=== PATIENT | female | born 1940 | race Caucasian/White ===

== ENCOUNTER 2022-03-04 14:32 | Emergency (ER) | payer MEDICARE, OTHER ==
[~2022-03-04] VITALS: Ht 154.9 cm; Wt 53.6 kg
[~2022-03-04 14:32] MED LIST: ASPI-1265 PO; ATOR40TA PO; CA C1TAB69 PO; CALC-336 PO; CLOP75TA34 PO; COPP2TAB PO; DIPHENOXYLATE HCL PO; LISI-222 PO; METH1500 PO; NITR0.4T51 SL; OMEG1CAP54 PO; RANI150C11 PO; SOTA80TA73 PO; VITC500T PO; [UNRECOGNIZED DRUG - CODE] PO; [UNRECOGNIZED DRUG - OTHER] PO
[2022-03-04 14:36] VITALS: BP 151/79
[2022-03-04] MEDS ORDERED: APIX5TAB3 PO ×2 (16:47)
[2022-03-04] MEDS ORDERED: apixaban 5mg tablet PO ONE (16:47)
== END 2022-03-04 17:12 | disposition home or self-care (01) ==
LOC: ER 14:32
DX: I82.401 Acute embolism and thrombosis of unspecified deep veins of right lower extremity (principal); I48.91 Unspecified atrial fibrillation; I25.10 Atherosclerotic heart disease of native coronary artery without angina pectoris; G89.29 Other chronic pain; Z98.890 Other specified postprocedural states; Z88.1 Allergy status to other antibiotic agents; Z88.8 Allergy status to other drugs, medicaments and biological substances; Z88.6 Allergy status to analgesic agent; Z79.82 Long term (current) use of aspirin; Z79.899 Other long term (current) drug therapy
CPT/HCPCS: 73630; 93971; 99284

== ENCOUNTER 2022-03-08 17:30 | Emergency (ER) | payer MEDICARE, OTHER ==
[~2022-03-08] VITALS: Ht 154.9 cm; Wt 53.6 kg
[~2022-03-08 17:30] MED LIST changes: +APIX5TAB3 PO
--- NOTE | 2022-03-08 19:10 | NUR ---
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
[2022-03-08 20:11] VITALS: BP 141/70
== END 2022-03-08 21:50 | disposition home or self-care (01) ==
LOC: ER 17:31
DX: I82.401 Acute embolism and thrombosis of unspecified deep veins of right lower extremity (principal); R22.41 Localized swelling, mass and lump, right lower limb; I48.91 Unspecified atrial fibrillation; G89.29 Other chronic pain; I50.9 Heart failure, unspecified; Z86.19 Personal history of other infectious and parasitic diseases; Z95.5 Presence of coronary angioplasty implant and graft; Z98.890 Other specified postprocedural states; Z79.82 Long term (current) use of aspirin; Z79.899 Other long term (current) drug therapy; Z88.1 Allergy status to other antibiotic agents; Z88.2 Allergy status to sulfonamides; Z88.8 Allergy status to other drugs, medicaments and biological substances; Z79.01 Long term (current) use of anticoagulants
CPT/HCPCS: 99281

== ENCOUNTER 2023-11-15 08:35 | Emergency (ER) | payer MEDICARE ==
[~2023-11-15] VITALS: Ht 154.9 cm; Wt 53.2 kg
[2023-11-15 11:03] LABS: BASOPHILS # (AUTO) 0.1 X10'3 (0-0.2); BASOPHILS % (AUTO) 0.8 % (0-1); EOSINOPHILS % (AUTO) 0.4 % (0-6); HEMATOCRIT 46.6 % (35.0-45.0); HEMOGLOBIN 15.2 g/dl (12.0-16.0); LYMPHOCYTES # (AUTO) 1.4 X10'3 (1.1-4.8); LYMPHOCYTES % (AUTO) 15.3 % (21-51); MEAN CORPUSCULAR HEMOGLOBIN 30.6 PG (27.0-31.0); MEAN CORPUSCULAR HGB CONC 32.7 g/dL (33.0-36.5); MEAN CORPUSCULAR VOLUME 93.5 FL (78-98); MEAN PLATELET VOLUME 8.6 FL (7.4-10.4); MONOCYTES # (AUTO) 0.8 X10'3 (0-0.9); MONOCYTES % (AUTO) 9.3 % (2-12); NEUTROPHILS # (AUTO) 6.7 X10'3 (1.8-7.7); NEUTROPHILS % (AUTO) 74.2 % (42-75); PLATELET COUNT 208 X10'3 (140-440); RED BLOOD COUNT 4.98 X10'6 (4.20-5.60); RED CELL DISTRIBUTION WIDTH 14.1 % (11.5-14.5)
[2023-11-15 11:45] LABS: ALANINE AMINOTRANSFERASE 25 U/L (12-78); ALBUMIN 3.5 G/DL (3.4-5.0); ALBUMIN/GLOBULIN RATIO 0.8 (1.1-1.5); ALKALINE PHOSPHATASE 133 IU/L (46-116); ANION GAP 8 (8-16); ASPARTATE AMINO TRANSFERASE 18 U/L (10-37); BILIRUBIN,TOTAL 0.7 MG/DL (0.1-1.0); BLOOD UREA NITROGEN 42 MG/DL (7-18); BUN/CREATININE RATIO 42.4 (10.0-20.0); CALCIUM 9.3 MG/DL (8.5-10.1); CHLORIDE 103 MMOL/L (99-107); CREATININE 0.99 MG/DL (0.40-0.90); GLUCOSE 103 MG/DL (70-104); POTASSIUM 4.3 MMOL/L (3.5-5.1); SODIUM 142 MMOL/L (135-145); TOTAL CARBON DIOXIDE 31.1 MMOL/L (24-32); TOTAL PROTEIN 7.7 G/DL (6.4-8.2); eCRCL 31 ML/MIN; eGFR 53 ML/MIN
[2023-11-15] MEDS ORDERED: HYDR-3965 PO (12:17)
[2023-11-15] MEDS ORDERED: PRED20TA PO (12:17)
[2023-11-15] MEDS ORDERED: COLC0.6C3 PO (12:17)
[2023-11-15 12:28] VITALS: BP 162/96; PULSE 88; RESP 18; TEMP 97.9; O2SAT 99
== END 2023-11-15 12:30 | disposition home or self-care (01) ==
LOC: ER 08:36
DX: M10.9 Gout, unspecified (principal); Z91.041 Radiographic dye allergy status; Z88.5 Allergy status to narcotic agent; Z88.2 Allergy status to sulfonamides; Z88.6 Allergy status to analgesic agent; Z88.8 Allergy status to other drugs, medicaments and biological substances; Z79.899 Other long term (current) drug therapy; Z79.82 Long term (current) use of aspirin
CPT/HCPCS: 36415; 73630; 80053; 84550; 85025; 99284